=== PATIENT | female | born 1995 | race American Indian/Alaskan Native ===

== ENCOUNTER 2020-07-25 10:09 | Inpatient (IN) | payer OTHER ==
[2020-07-25] MEDS ORDERED: ePHEDrine SULFATE 50 MG/1 ML INJ IV PRN ×2 (12:53→16:47)
[2020-07-25] MEDS ORDERED: MINERAL OIL 30 ML ORAL LIQD PO PRN (12:53)
[2020-07-25] MEDS ORDERED: TERBUTALINE 1 MG/1 ML INJ SUB-Q PRN (12:53)
[2020-07-25] MEDS ORDERED: fentaNYL 100 MCG/2 ML INJ IV PRN (12:53)
[2020-07-25] MEDS ORDERED: LIDOCAINE (2%) 20 MG/1 ML VIAL 20 ML MDV INFILTRATI ONE (12:53)
[2020-07-25] MEDS ORDERED: BUTORPHANOL 2 MG/1 ML INJ IV PRN (12:53)
[2020-07-25] MEDS ORDERED: OXYTOCIN DRIP 30 UNITS/500 ML BAG IV SCH (13:00)
[2020-07-25] MEDS ORDERED: AMPICILLIN/NS 2 GM/100 ML 2 GM/100 ML BAG IV ONE (14:00)
[2020-07-25] MEDS: LACTATED RINGERS 1,000 ML IV SCH ×3 (14:02→18:13)
--- NOTE | 2020-07-25 14:06 | History and Physical Report ---
History of Present Illness Date of examination: 07/25/20 Date of admission: 07/25/2020 Chief complaint: regular contractions History of present illness: 24 yo at 39w4d presents with regular uterine contractions. Reports good movement, denies leakage of fluid or vaginal bleeding. She has received care from [facility] and [facility]. course has been uncomplicated. She is GBS positive. Past History Past Medical History: no pertinent history Past Surgical History: no surgical history Family/Genetic History: none Social history: single - Obstetrical History Expected Date of Delivery: 07/28/20 Actual Gestation: 39 Week(s) 4 Day(s) : 1 Para: 0 Medications and Allergies Allergies Allergy/AdvReac Type Severity Reaction Status Date / Time No Known Allergies Allergy Unverified 08/11/15 10:17 Home Medications Medication Instructions Recorded Confirmed Last Taken Type Ciprofloxacin 0.3% (Nf) 2 drops OD Q4HR #1 bottle 08/11/15 Unknown Rx [Ciprofloxacin OPTH] Ibuprofen [Motrin 400 MG tab] 400 mg PO Q8H PRN #20 tablet 08/11/15 Unknown Rx Tobramycin 0.3% [Tobrex] 1 drop OS Q8HR #1 bottle 02/27/16 Unknown Rx Active Meds: Active Medications Butorphanol Tartrate (Stadol) 2 mg IV Q2H PRN PRN Reason: Pain , Severe (7-10) Ephedrine Sulfate (Ephedrine Sulfate) 10 mg IV Q2M PRN PRN Reason: Hypotension Fentanyl (Sublimaze) 100 mcg IV Q2H PRN PRN Reason: Pain,Severe (7-10) LABOR PAIN Lactated Ringer's (Lactated Ringers) 1,000 mls @ 125 mls/hr IV DIRECT TRISHA Oxytocin/Sodium Chloride (Pitocin/Ns 30 Unit/500ml) 30 units in 500 mls @ 40 mls/hr IV TITR TRISHA; Protocol Ampicillin Sodium (Ampicillin/Ns 2 Gm/100 Ml) 2 gm in 100 mls @ 100 mls/hr IV ONCE ONE; Protocol Stop: 07/25/20 14:59 Labetalol HCl (Labetalol) 20 mg IV Q1H PRN PRN Reason: Hypertension Mineral Oil (Mineral Oil) 30 ml PO QHS PRN PRN Reason: Constipation Terbutaline Sulfate (Brethine) 0.25 mg SUB-Q ONCE PRN PRN Reason: Hyperstimulation/Hypertonicity Review of Systems All systems: negative Genitourinary: normal appearance, contractions, no vaginal bleeding, no leakage of fluid - Vital Signs Vital signs: Vital Signs Pulse Pulse Ox 100 H 100 07/25/20 11:00 07/25/20 11:00 Temp Pulse Resp BP Pulse Ox 100 H 136/93 99 07/25/20 13:57 07/25/20 12:49 07/25/20 13:57 - Physical Exam Abdomen: Positive: normal appearance Uterus: Positive: enlarged (gravid) - Obstetrical FHR: category 1 Uterine Contraction Monitor Mode: External Cervical Dilatation: 6.5 (per RN) Cervical Effacement Percentage: 100 station: -3 Uterine Contraction Frequency (min): 4-6 min Uterine Contraction Duration: 60-90 sec Uterine Contraction Pattern: Regular Results All other labs normal. Assessment and Plan A: 22 yo at 39w4d in active labor GBS positive Membranes intact P: Admit to labor and delivery Pain relief as requested Ampicillin prophylaxis Anticipate
[2020-07-25 14:58] LABS: Hematocrit 36.1 % (30.3-42.9); Hemoglobin 12.1 gm/dl (10.1-14.3); Mean Corpuscular HGB Conc 33 % (30-34); Mean Corpuscular Volume 85 fl (79-97); Platelet Count 234 K/mm3 (140-440); Red Blood Count 4.27 M/mm3 (3.65-5.03); Red Cell Distribution Width 16.8 % (13.2-15.2)
[2020-07-25 15:15] LABS: Alanine Aminotransferase 8 units/L (7-56); Albumin 3.3 g/dL (3.9-5); Blood Urea Nitrogen 6 mg/dL (7-17); Calcium 8.5 mg/dL (8.4-10.2); Hemolysis Index 7
[2020-07-25 15:17] LABS: BUN/Creatinine Ratio 10
[2020-07-25] MEDS ORDERED: NALOXONE 2 MG/2 ML INJ IV PRN (16:47)
--- NOTE | 2020-07-25 16:47 | Anesthesia Consultation ---
Anesthesia Consult and Med Hx Date of service: 07/25/20 - Airway Anesthetic Teeth Evaluation: Good ROM Head & Neck: Adequate Mental/Hyoid Distance: Adequate Mallampati Class: Class II Intubation Access Assessment: Probably Good - Pulmonary Exam CTA: Yes - Cardiac Exam Cardiac Exam: RRR - Pre-Operative Health Status ASA Pre-Surgery Classification: ASA2 Proposed Anesthetic Plan: Epidural - Pulmonary Hx Asthma: No - Cardiovascular System Hx Hypertension: No
[2020-07-25] MEDS ORDERED: fentaNYL-BUPIV 2 MCG/ML-0.125% 200 MCG/100 ML BAG EPIDURAL SCH (17:00)
--- NOTE | 2020-07-25 17:00 | Progress Note ---
Labor Epidural - Labor Epidural Start Time: 16:52 Stop Time: 17:00 Performed by:: AME CHATMAN Procedure: Patient is requesting epidural for labor pain. H&P, and labs reviewed. Procedure explained, questions answered, consent obtained. Patient in sitting position with blood pressure cuff and pulse ox on and working. Timeout performed immediately before start of procedure. Sterile betadine prep/drape. 3 mL 1% lidocaine skin wheal at L[3]-L[4]. 18-gauge [employer] Horizon Grouptead epidural needle advanced to [id number] with saline at [7] cm. Epidural dexmedetomidine [30] mcg administered. Epidural catheter advanced to [12] cm, negative aspiration for blood and csf, negative test dose 3 ml 1.5% lidocaine with epinephrine. Sterile steri-strips and tegaderm applied, followed by tape reinforcement. Patient tolerated procedure well. Jonel GOOD
--- NOTE | 2020-07-25 17:50 | Event Note ---
Date: 07/25/20 SVE /-1, discussed risks, benefits, and alternatives of AROM. Pt elects for AROM. AROM meconium stained fluid, FHTs reassuring throughout. Pt placed on right side with peanut ball between legs.
[2020-07-25] MEDS ORDERED: AMPICILLIN/NS 1 GM/50 ML 1 GM/50 ML BAG IV SCH (18:00)
[2020-07-25] MEDS ORDERED: OXYTOCIN DRIP 30,000 MILLIUNITS/500 ML BAG IV ONE (18:59)
--- NOTE | 2020-07-26 00:30 | Event Note ---
Date: 07/26/20 SVE: c/c/-1. Attempted trial pushing, minimal descent. FHTs category I, maternal status reassuring. Laboring down. Anticipate .
[2020-07-26] MEDS ORDERED: MAGNESIUM HYDROXIDE (MOM) ORAL LIQD UDC PO PRN (02:37)
[2020-07-26] MEDS ORDERED: WITCH HAZEL/ GLYCERIN PAD TP PRN (02:37)
[2020-07-26] MEDS ORDERED: ONDANSETRON 4 MG/2 ML INJ IV PRN (02:37)
[2020-07-26] MEDS ORDERED: LANOLIN/ZINC/DIMETHICONE (LANSINOH) 7 GM TP PRN (02:37)
[2020-07-26] MEDS ORDERED: PROMETHAZINE 25 MG RECT SUPP PR PRN (02:37)
[2020-07-26] MEDS ORDERED: PROMETHAZINE 25 MG TAB PO PRN (02:37)
[2020-07-26] MEDS ORDERED: diphenhydrAMINE 25 MG CAP PO PRN (02:37)
--- NOTE | 2020-07-26 02:57 | Procedure Note ---
OB Delivery Note - Delivery Date of Delivery: 07/26/20 Surgeon: PATRICIO MADISON ([place], [facility]) Estimated blood loss: 300cc - Vaginal Delivery presentation: vertex Delivery position: OA Intrapartum events: PROM->1hr before delivery, meconium, mult. late decelerations Delivery induction: none Delivery augmentation: rupture of membranes, pitocin Delivery monitor: external FHT, external uterine Route of delivery: Delivery placenta: spontaneous Delivery cord: 3 umbilical vessels Episiotomy: none Delivery laceration: 1st degree (midline, hemostatic, not repaired ) Anesthesia: epidural Delivery comments: Excellent maternal effort, of viable male infant over intact perineum. Head delivered OA restituted ALESSIA, shoulders followed with traction. Infant to maternal abdomen, Apgars 8/9. Placenta delivered spontaneously and intact at 2:18am. Delayed cord clamping by 4 minutes, cord clamped and cut. Intact 3VC. Bleeding resolved with fundal massage, pitocin infusing, EBL 300mL. First degree laceration, well approximated, hemostatic, no repair. Mother and infant bonding well, breast feeding. - Infant A at 1 minute: 8 at 5 minutes: 9 Gender: Male
[2020-07-26] MEDS: IBUPROFEN 600 MG TAB PO SCH ×3 (05:03→19:14)
[2020-07-26 15:05] LABS: Hematocrit 32.8 % (30.3-42.9); Hemoglobin 10.9 gm/dl (10.1-14.3)
--- NOTE | 2020-07-26 15:50 | Post Anesthesia Evaluation ---
- Post Anesthesia Evaluation Patient Participated: Yes Airway Patent: Yes Stable Respiratory Function: Yes Nausea/Vomiting: No Temp > 96.8F: Yes Pain Manageable: Yes Adequeate Hydration: Yes Anesthesia Complications: No Block Receding Appropriately: Yes
--- NOTE | 2020-07-27 09:27 | Progress Note ---
Assessment and Plan A: S/p to term Vital signs stable EBL 300, Hgb 10.9 and bottle feeding P: and education provided D/c today Subjective - Subjective Date of service: 07/27/20 Principal diagnosis: S/p Interval history: S/p , PPD1 Patient reports: appetite normal, voiding normally, pain well controlled, flatus, ambulating normally : doing well, nursing well, bottle feeding (bottle and breast) Objective - Vital Signs Latest vital signs: Vital Signs Temp Pulse Resp BP Pulse Ox 07/27/20 01:13 97.8 F 91 H 20 107/66 97 07/26/20 21:54 98.7 F 93 H 20 120/80 97 07/26/20 12:24 97.8 F 99 H 18 113/76 100 Intake and Output 07/26/20 07/27/20 07/27/20 23:59 07:59 15:59 Intake Total 480 240 Balance 480 240 Intake: Oral 480 240 Other: Total, Intake Amount 240 240 # Voids Void 1 1 - Exam Breasts: Present: normal. Absent: skin changes, nipple abnormal Lungs: Present: Normal air movement Abdomen: Present: normal appearance, soft. Absent: distention, tenderness Uterus: Present: normal, firm, fundal height below umbilicus (FF-1) Extremities: Present: normal. Absent: edema
[2020-07-27] MEDS: IBUPROFEN 600 MG TAB PO SCH (09:29)
--- NOTE | 2020-07-27 09:29 | Discharge Summary ---
Providers - Providers Date of Admission: 07/25/20 14:11 Date of discharge: 07/27/20 Attending physician: ELISABETH LOZANO 07/26/20 02:38 Consult to [employer] [CONS] Routine Reason For Exam: assistance with , SNS Primary care physician: JYOTHI OLIVEIRA Hospitalization Reason for admission: active labor, IUP at term Delivery: Episiotomy: none Laceration: 1st degree (hemostatic, not repaired ) complications: none Discharge diagnosis: IUP at term delivered baby: male Hospital course: Uneventful course Condition at discharge: Good Disposition: DC-01 TO HOME OR SELFCARE Plan - Discharge Medications Prescriptions: Ibuprofen [Motrin] 600 mg PO Q6H PRN #60 tablet PRN Reason: Pain - Provider Discharge Summary Activity: routine, no sex for 6 weeks, no heavy lifting 4 weeks, no strenuous exercise Diet: routine Instructions: routine Additional instructions: [] Smoking cessation referral if applicable(refer to patient education folder for contact #) [] Refer to [facility] Booklet Call your doctor immediately for: * Fever > 100.5 * Heavy vaginal bleeding ( >1 pad per hour) * Severe persistent headache * Shortness of breath * Reddened, hot, painful area to leg or breast * Drainage or odor from incision. * Keep incision clean and dry at all times and follow doctor's instructions regarding bathing/showering - Follow up plan Follow up: PATRICIO MADISON CNM [Advanced Practice Nurse] - 14 Days (Call [facility]'s OBGYN to schedule followup appointment in 2 weeks)
[2020-07-27 13:41] VITALS: BP 120/78
== END 2020-07-27 14:30 | disposition home or self-care (01) | DRG 775 ==
LOC: TRG 10:09 → APU 10:10 → LD 14:06 → TRG 14:08 → LD 14:11 → OB 07-26 04:28
PROVIDERS: ADMIT Obstetrics & Gynecology; ATTEND Obstetrics & Gynecology
PROC: 10907ZC Drainage of Amniotic Fluid, Therapeutic from Products of Conception, Via Natural or Artificial Opening (ICD-10-PCS; 2020-07-25)
PROC: 3E0R3BZ Introduction of Anesthetic Agent into Spinal Canal, Percutaneous Approach (ICD-10-PCS; 2020-07-25)
PROC: 00HU33Z Insertion of Infusion Device into Spinal Canal, Percutaneous Approach (ICD-10-PCS; 2020-07-25)
PROC: 10E0XZZ Delivery of Products of Conception, External Approach (ICD-10-PCS; principal; 2020-07-26)
DX: O77.0 Labor and delivery complicated by meconium in amniotic fluid (principal); O99.824 Streptococcus B carrier state complicating childbirth; Z37.0 Single live birth; Z3A.39 39 weeks gestation of pregnancy; O76 Abnormality in fetal heart rate and rhythm complicating labor and delivery; O70.0 First degree perineal laceration during delivery
CPT/HCPCS: 36415; 80053; 84550; 85014; 85018; 85027; 86592; 86850; 86900; 86901; 88307; G0378; J0290; J2590; J3010; J7120